=== PATIENT | male | born 1980 | race Caucasian/White ===

== ENCOUNTER 2016-08-16 17:49 | Emergency (ER) | payer SELFPAY ==
[2016-08-16 17:59] VITALS: BP 142/86; PULSE 95; TEMP 98.5; BMI 30.4
[2016-08-16] MEDS ORDERED: ALPRAZolam 0.25 MG TABLET PO ONE (19:07)
--- NOTE | 2016-08-16 19:07 | PDOC ---
History of Present Illness - General Chief Complaint: Psychiatric Stated Complaint: CHEST PAIN Time Seen by Provider: 08/16/16 18:57 History Source: Patient Exam Limitations: No Limitations - History of Present Illness Initial Comments: 08/16/16 19:07 CHIEF COMPLAINT: Chest pain HISTORY OF PRESENT ILLNESS: This is an otherwise healthy 35-year-old male presents for evaluation of chest pain. He reports that he began feeling anxious this afternoon and developed chest pain/pressure and palpitations. He was seen in this ED on 08/05 for similar symptoms and discharged after normal cardiac labs. He does attribute his symptoms to anxiety, but reports that he has never had issues of anxiety prior to these past 2 weeks. Patient is a current smoker (7 cigarettes daily). He denies drug use. He reports occasional alcohol use. He denies family history of CAD/early . Vital signs on arrival are notable for pulse of 95. REVIEW OF SYSTEMS: GENERAL/CONSTITUTIONAL: No fever or chills. No weakness. No weight change. HEAD, EYES, EARS, NOSE AND THROAT: No change in vision. No ear pain or discharge. No sore throat. CARDIOVASCULAR: See HPI. RESPIRATORY: No cough, wheezing, or shortness of breath. GASTROINTESTINAL: No nausea, vomiting, diarrhea or constipation. GENITOURINARY: No dysuria, frequency, or change in urination. MUSCULOSKELETAL: No joint or muscle swelling or pain. No neck or back pain. SKIN: No rash or easy bruising. NEUROLOGIC: No headache, vertigo, loss of consciousness, or loss of sensation. PSYCHIATRIC: No depression or anxiety. ENDOCRINE: No increased thirst. No abnormal weight change. HEMATOLOGIC/LYMPHATIC: No anemia, easy bleeding, or history of blood clots. ALLERGIC/IMMUNOLOGIC: No hives or skin allergy. No latex allergy. PHYSICAL EXAM: GENERAL: The patient is awake, alert, and fully oriented, in no acute distress. HEAD: Normal with no signs of trauma. ENT: Pupils equal, round and reactive to light, extraocular movements intact, sclera anicteric, conjunctiva clear. Neck supple. LUNGS: Clear to auscultation bilaterally. Normal excursion. No respiratory distress or use of accessory muscles. CV: RRR, S1/S2, no MRG. Cap refill < 2 sec. ABDOMEN: Soft, non-distended, non-tender. EXTREMITIES: Normal range of motion, no edema. NEUROLOGICAL: Normal speech, normal gait. CN II-XII grossly intact. PSYCH: Normal mood, normal affect. SKIN: Warm, dry, normal turgor, no rashes or lesions noted. Past History - Past Medical History Allergies/Adverse Reactions: Allergies Allergy/AdvReac Type Severity Reaction Status Date / Time No Known Allergies Allergy Verified 08/16/16 17:56 Home Medications: Ambulatory Orders NK [No Known Home Medication] 08/05/16 Other medical history: anxeity - Psycho/Social/Smoking Cessation Hx Anxiety: No Suicidal Ideation: No Smoking History: Never smoked Have you smoked in the past 12 months: Yes Number of Cigarettes Smoked Daily: 6 Information on smoking cessation initiated: Yes Hx Alcohol Use: No Drug/Substance Use Hx: Yes (randa) Substance Use Type: None *Physical Exam - Vital Signs Last Vital Signs Temp Pulse Resp BP Pulse Ox 98.5 F 95 H 18 142/86 100 08/16/16 17:56 08/16/16 17:56 08/16/16 17:56 08/16/16 17:56 08/16/16 17:56 Heart Score/ECG Review - History History: Slightly suspicious - Electrocardiogram EKG: Normal - Age Age: </= 45 - Risk Factors Risk Factors Heart Score: Yes Smoking History Based on the list above the patient has:: 1-2 risk factors - Troponin Troponin: </= normal limit - Score Heart Score - Total: 1 - ECG Intrepretation Comment:: 08/16/16 20:48 NSR at 100bpm. S1 QIII TIII pattern. ED Treatment Course - LABORATORY CBC & Chemistry Diagram: 08/16/16 19:10 08/16/16 19:10 - RADIOLOGY Radiology Studies Ordered: Category Date Time Status CHEST PA & LAT [RAD] Stat Radiology 08/16/16 19:07 Ordered Medical Decision Making - Medical Decision Making 08/16/16 19:14 A/P: 35 year old male with chest pain/pressure and anxiety; recent visit for similar symptoms. 1. EKG 2. CXR 3. Cardiac labs 4. Xanax 0.25mg po 5. Re-assess 08/16/16 19:39 WBC mildly elevated at 12.3 (11.3 on prior visit). 08/16/16 20:47 CK is mildly elevated at 847. Troponin <0.02. 08/16/16 20:54 D-dimer <200 08/16/16 22:40 Trop neg x 2. CPK trending down. Will dc with PCP followup. Return precautions reviewed. *DC/Admit/Observation/Transfer Diagnosis at time of Disposition: Anxiety Chest pain Qualifiers: Chest pain type: other chest pain Qualified Code(s): R07.89 - Other chest pain ; R07.8 - Other chest pain - Discharge Dispostion Disposition: HOME Condition at time of disposition: Improved Admit: No - Referrals Referrals: Sallie Pineda MD [Staff Physician] - Call tomorrow (primary care) - Patient Instructions Printed Discharge Instructions: DI for Atypical Chest Pain Additional Instructions: -Follow up with primary care (referral enclosed) -Return here for difficulty breathing, worsening chest pain, or any other concerning symptoms
[2016-08-16 19:23] LABS: BASOPHIL 0.4 % (0-2.0); EOSINOPHIL 0.3 % (0-4.5); MCH 28.2 pg (25.7-33.7); MCHC 33.3 g/dl (32.0-35.9); MEAN CELL VOLUME 84.8 fl (80-96); MEAN PLT VOLUME 9.4 fl (7.5-11.1); PLATELET COUNT 205 K/MM3 (134-434); WHITE BLOOD COUNT 12.3 K/mm3 (4.0-10.0)
[2016-08-16] MEDS ORDERED: ALPRAZolam 0.25 MG TABLET ONE (19:41)
[2016-08-16 19:55] LABS: INR 1.11 (0.82-1.09); PROTHROMBIN TIME (PATIENT) 12.2 SEC (9.98-11.88)
[2016-08-16 19:56] LABS: ALBUMIN 4.3 g/dl (3.4-5.0); ANION GAP 9 (8-16); CO2 25 mmol/L (21-32); CREATININE 0.8 mg/dL (0.7-1.3); GLUCOSE,RANDOM 95 mg/dL (74-106); SGOT/AST 27 U/L (15-37); SGPT/ALT 47 U/L (12-78)
[2016-08-16 19:59] LABS: ALK PHOS 107 U/L (45-117); BILIRUBIN,TOTAL 0.4 mg/dL (0.2-1.0); TOT PROT 7.9 g/dl (6.4-8.2); TROPONIN I < 0.02 ng/ml (0.00-0.05)
[2016-08-16 22:31] LABS: TROPONIN I < 0.02 ng/ml (0.00-0.05)
--- NOTE | 2016-08-18 11:57 | EKG ---
Test Reason : Blood Pressure : / mmHG Vent. Rate : 100 BPM Atrial Rate : 100 BPM P-R Int : 170 ms QRS Dur : 092 ms QT Int : 356 ms P-R-T Axes : 052 064 042 degrees QTc Int : 459 ms NORMAL SINUS RHYTHM POSSIBLE LEFT ATRIAL ENLARGEMENT BORDERLINE ECG NO PREVIOUS ECGS AVAILABLE Confirmed by KIT PAYNE, KODY ([id number]) on 08/18/2016 11:57:21 AM Referred By: Confirmed By:KODY PANTOJA MD
== END 2016-08-16 22:42 | disposition home or self-care (01) ==
LOC: JERFT 17:49
DX: F41.9 Anxiety disorder, unspecified (principal); R07.89 Other chest pain
CPT/HCPCS: 36415; 71020-TC; 80053; 82550; 82553; 84484; 85025; 85379; 85610; 93005; 93010; 99281-25

== ENCOUNTER 2017-10-01 13:15 | Emergency (ER) | payer OTHER ==
[2017-10-01 13:34] VITALS: BP 134/75; PULSE 91; TEMP 98.2; BMI 32.2
[2017-10-01] MEDS ORDERED: DIPHTH,PERTUSS(ACELL),TET 0.5 ML DISP.SYRIN IM ONE (13:58)
--- NOTE | 2017-10-01 14:21 | PDOC ---
History of Present Illness - General Chief Complaint: Laceration Stated Complaint: LACERATION - History of Present Illness Initial Comments: 36-year-old male without comorbidities and unsure of his current tetanus status presents for evaluation of a laceration on his right third and fourth fingers. 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 10/01/17 14:17 Past History - Past Medical History Allergies/Adverse Reactions: Allergies Allergy/AdvReac Type Severity Reaction Status Date / Time No Known Allergies Allergy Verified 10/01/17 13:29 Home Medications: Ambulatory Orders NK [No Known Home Medication] 08/05/16 - Suicide/Smoking/Psychosocial Hx Smoking History: Never smoked Have you smoked in the past 12 months: Yes Number of Cigarettes Smoked Daily: 6 Hx Alcohol Use: No Drug/Substance Use Hx: Yes (randa) Substance Use Type: None Review of Systems - Review of Systems Musculoskeletal: Yes: See HPI All Other Systems: Reviewed and Negative *Physical Exam - Vital Signs Last Vital Signs Temp Pulse Resp BP Pulse Ox 98.2 F 91 H 16 134/75 97 10/01/17 13:31 10/01/17 13:31 10/01/17 13:31 10/01/17 13:31 10/01/17 13:31 - Physical Exam Comments: The third finger is normal skin color and temperature there is an irregularly shaped laceration just distal to the MCP J on the volar aspect of the finger. Subcutaneous fat is exposed. FDS and FDP function work independently he is able to make a full fist. The laceration is about 1 cm in length. There is an irregular shaped laceration on the fourth finger just distal to the MCP J on the volar aspect of the finger. The laceration is subcentimeter in length. FDS and FDP work independently 10/01/17 14:17 Medical Decision Making - Medical Decision Making The hand was sterilely prepped aseptically 6 mL of 1% lidocaine for digital block was introduced in the area of the A1 sravan of the right third and fourth finger. After appropriate anesthesia the wounds were explored to their base in a bloodless field without any identification of a foreign body. Using 4-0 nylon sutures in interrupted fashion the wounds were closed. This was tolerated well a dry sterile dressing was placed. Prior to closure the wounds were copiously irrigated. 08/25/18 14:18 *DC/Admit/Observation/Transfer Diagnosis at time of Disposition: Laceration of hand - Discharge Dispostion Disposition: HOME Condition at time of disposition: Stable Decision to Admit order: No - Referrals Referrals: Archie Barrios MD [Staff Physician] - - Patient Instructions Printed Discharge Instructions: DI for Laceration Repair Additional Instructions: Return to the emergency room she develop any redness swelling or tenderness around the area or if the wound begins to drain. Otherwise follow-up with hand surgery in 2-3 days for further evaluation and treatment options. He also have the option of returning to the emergency room in about 10 days for suture removal. Suture removal 10 days. Remove the dressing that was placed on today in 48 hours and wash her hair with soap and water and leave the area open to air. If he need to work he must wear a dressing over the areas of the wound and a glove. - Post Discharge Activity
== END 2017-10-01 14:26 | disposition home or self-care (01) ==
LOC: JERFT 13:15
PROC: 3E0234Z Introduction of Serum, Toxoid and Vaccine into Muscle, Percutaneous Approach (ICD-10-PCS; principal; 2017-10-01)
PROC: 0JQJ0ZZ Repair Right Hand Subcutaneous Tissue and Fascia, Open Approach (ICD-10-PCS; 2017-10-01)
DX: S61.212A Laceration without foreign body of right middle finger without damage to nail, initial encounter (principal); S61.214A Laceration without foreign body of right ring finger without damage to nail, initial encounter; W29.3XXA Contact with powered garden and outdoor hand tools and machinery, initial encounter; Y93.H2 Activity, gardening and landscaping; Y92.89 Other specified places as the place of occurrence of the external cause; Y99.8 Other external cause status
CPT/HCPCS: 12001; 90471; 90715; 99282-25

== ENCOUNTER 2017-11-18 22:05 | Emergency (ER) | payer OTHER ==
[2017-11-18 22:19] VITALS: BMI 31.8
--- NOTE | 2017-11-18 22:36 | PDOC ---
History of Present Illness - General Chief Complaint: Chest Pain Stated Complaint: CHEST PAIN, LT ARM PAIN Time Seen by Provider: 11/18/17 22:30 History Source: Patient Exam Limitations: No Limitations - History of Present Illness Initial Comments: 11/18/17 22:59 37y M no known pmhx presents with chest pain. pt states he has been having intermittent cp for >1 year, the pts pain is typically sharp in the left chest, lasts for a few minutes and the pain takes his breath away. denies any to, worsening of cp on exertion, n/v, diapohresis. not worse with food intake. pt notes he works in [employer] and usually is pain free. pt states he has seen his doctor and been to [facility] several times for this and has been told everything is ok. pt denies any leg edema., calf pain, hemoptysis, fever/chills, cough, back pain , numbness/tingling/.weakness. pt has not tried any tylenol or motrin for his pain. +smoking denies family or personal hx of CAD Past History - Past Medical History Allergies/Adverse Reactions: Allergies Allergy/AdvReac Type Severity Reaction Status Date / Time No Known Allergies Allergy Verified 10/01/17 13:29 Home Medications: Ambulatory Orders NK [No Known Home Medication] 08/05/16 COPD: No - Suicide/Smoking/Psychosocial Hx Smoking History: Never smoked Have you smoked in the past 12 months: Yes Number of Cigarettes Smoked Daily: 6 Hx Alcohol Use: No Drug/Substance Use Hx: Yes (randa) Substance Use Type: None Review of Systems - Review of Systems Able to Perform ROS?: Yes Comments:: 11/18/17 23:01 Constitutional - no reported Fever, Chills, HEENT: no reported vision changes, sore throat Respiratory: no reported cough, sob, hemoptysis Cardiac: +chest pain no reported , palpitations, light headedness, leg swelling Abd/GI: no reported abd pain, nausea, vomiting, blood per rectum, melena, diarrhea : no reported dysuria, frequency, discharge Musculskelatal - no reported back pain, joint swelling skin - no reported bruising, erythema, rash neurological: no reported headache, numbness, focal weakness, tingling, ataxia, hematologic: no reported easy bruising, easy bleeding *Physical Exam - Vital Signs Last Vital Signs Temp Pulse Resp BP Pulse Ox 98.7 F 54 L 18 138/76 99 11/18/17 22:18 11/18/17 22:18 11/18/17 22:18 11/18/17 22:18 11/18/17 22:18 - Physical Exam Comments: 11/18/17 23:01 GENERAL: The patient is awake, alert, and fully oriented, Nontoxic - in no acute distress. HEAD: Normocephalic, atraumatic. EYES: extraocular movements intact, sclera anicteric, conjunctiva clear. ENT: Normal voice, Moist mucous membranes. NECK: Normal range of motion, supple LUNGS: Breath sounds equal, clear to auscultation bilaterally. No wheezes, no rhonchi, no rales. HEART: Regular rate and rhythm, normal S1 and S2 without murmur, rub or gallop. CHEST: no rash, +ttp on L pec major, pain reproducible with certain motions of L arm ABDOMEN: Soft, nontender, normoactive bowel sounds. No guarding, no rebound. . No CVA tenderness EXTREMITIES: Normal range of motion, no edema. No clubbing or cyanosis. No cords, erythema, or tenderness. NEUROLOGICAL: No facial assymetry, Normal speech, movin gall 4 extremities sptonenously and symmetrically PSYCH: Normal mood, normal affect. SKIN: Warm, Dry, normal turgor, Heart Score/ECG Review - ECG Impressions Comment:: 11/18/17 23:02 Twelve-lead EKG was performed and reviewed by me. There is normal sinus rhythm with a Rate of 56 The axis is normal. The intervals are normal. There is normal R wave progression There are no ST or T wave abnormalities. Impression: sinus bradycardia ED Treatment Course - LABORATORY CBC & Chemistry Diagram: 11/18/17 23:12 11/18/17 23:12 - ADDITIONAL ORDERS Additional order review: Laboratory Results 11/18/17 11/18/17 23:12 23:12 Sodium 139 Potassium 3.7 Chloride 105 Carbon Dioxide 26 Anion Gap 8 BUN 20 H Creatinine 0.7 Creat Clearance w eGFR > 60 Random Glucose 106 Calcium 8.6 Total Bilirubin 0.2 AST 23 ALT 61 Alkaline Phosphatase 100 Creatine Kinase 269 Creatine Kinase Index 0.7 CK-MB (CK-2) 2.0 Troponin I < 0.02 Total Protein 7.7 Albumin 4.0 Lipase 92 11/18/17 23:12 RBC 4.64 MCV 85.8 MCHC 34.0 RDW 13.0 MPV 9.0 Neutrophils % 63.2 D Lymphocytes % 27.9 D Monocytes % 6.4 Eosinophils % 1.8 D Basophils % 0.7 - RADIOLOGY Radiology Studies Ordered: Category Date Time Status CHEST PA & LAT [RAD] Stat Radiology 11/18/17 22:59 Ordered - Medications Given in the ED: ED Medications Discontinued Medications Generic Name Dose Route Start Last Admin Trade Name Freq PRN Reason Stop Dose Admin Acetaminophen 650 mg 11/18/17 22:57 11/18/17 23:21 Tylenol - PO 11/18/17 22:58 650 mg ONCE ONE Administration Medical Decision Making - Medical Decision Making 11/18/17 23:03 Suspect muscular chest pain Will give the patient some Tylenol will check chest x-ray to rule out acute pulmonary disease such as pneumothorax EKG reveals no signs of ischemia 11/19/17 00:11 ;labs unremarkble trop neg pt jaquan fuentesroved after tylenol will dc with pmd fu and cardiology follow-up I discussed the physical exam findings, ancillary test results and final diagnoses with the patient. I answered all of the patient's questions. The patient was satisfied with the care received and felt comfortable with the discharge plan and treatment plan. The patient will call their primary care physician within 24 hours to arrange follow-up and will return to the Emergency Department with any new, persistent or worsening symptoms. 11/19/17 00:59 pt declines cxr. will hav ept fu with pmd as outpatient return prcautions were discussed *DC/Admit/Observation/Transfer Diagnosis at time of Disposition: Atypical chest pain - Discharge Dispostion Disposition: HOME Condition at time of disposition: Improved Decision to Admit order: No - Referrals Referrals: Ignacio Canales MD [Staff Physician] - - Patient Instructions Printed Discharge Instructions: DI for Atypical Chest Pain Additional Instructions: Regrese al departamento de emergencias inmediatamente con CUALQUIER sntoma nuevo, persistente o que empeore. Sospecho que el dolor en el pecho es de naturaleza muscular, sin embargo, ya que he estado teniendo un dolor similar lisa el ltimo ao, por favor yelena un seguimiento con cardiologa para talib evaluacin adicional. DEBE llamar y hacer un seguimiento con patten mdico en 3 a 4 parisi para talib evaluacin adicional de fish sntomas. Los resultados fueron discutidos con usted. Asegrese de que patten mdico revise los resultados de patten evaluacin de emergencia. Si tuvo radiografas lisa patten visita, la le de manera preliminar, un radilogo la revisar y, si hay algn hallazgo adicional, lo llamaremos. Return to the emergency department immediately with ANY new, persistent or worsening symptoms. I suspect that you're chest pain is muscular in nature however since been having this similar pain for the past year please follow-up with cardiology for further evaluation. You MUST call and follow up with your doctor in 3-4 days for further evaluation of your symptoms. Results were discussed with you. Please make sure your doctor reviews the results of your emergency evaluation. If you had any xrays during your visit, it was read preliminarily by myself, a Radiologist will review it and if there are any additional findings we will call you. Print Language: TUNISIAN - Post Discharge Activity
[2017-11-18] MEDS ORDERED: ACETAMINOPHEN 325 MG TABLET (FP) PO ONE (22:57)
[2017-11-18] MEDS ORDERED: ACETAMINOPHEN 325 MG TABLET (FP) ONE (23:07)
[2017-11-18 23:26] LABS: BASO % 0.7 % (0-2.0); EOS % 1.8 % (0-4.5); HEMATOCRIT 39.8 % (35.4-49); HEMOGLOBIN 13.5 GM/dL (11.7-16.9); LYMPH % 27.9 % (8-40); MCH 29.2 pg (25.7-33.7); MEAN CELL VOLUME 85.8 fl (80-96); MONO % 6.4 % (3.8-10.2); NEUT % 63.2 % (42.8-82.8); PLATELET COUNT 202 K/MM3 (134-434); RBC 4.64 M/mm3 (4.00-5.60)
[2017-11-19] LABS: ANION GAP 8 MMOL/L (8-16); BILIRUBIN,TOTAL 0.2 mg/dL (0.2-1); BLOOD UREA NITROGEN 20 mg/dL (7-18); CALCIUM 8.6 mg/dL (8.5-10.1); CHLORIDE 105 mmol/L (98-107); CO2 26 mmol/L (21-32); CREATININE 0.7 mg/dL (0.55-1.3); GLUCOSE,RANDOM 106 mg/dL (74-106); POTASSIUM 3.7 mmol/L (3.5-5.1); SGOT/AST 23 U/L (15-37); SODIUM 139 mmol/L (136-145); TOT PROT 7.7 g/dl (6.4-8.2)
[2017-11-19 00:01] LABS: ALK PHOS 100 U/L (45-117); SGPT/ALT 61 U/L (13-61)
[2017-11-19 01:05] VITALS: BP 126/78; PULSE 88; TEMP 98.5
--- NOTE | 2017-11-19 10:24 | EKG ---
Test Reason : Blood Pressure : / mmHG Vent. Rate : 056 BPM Atrial Rate : 056 BPM P-R Int : 182 ms QRS Dur : 104 ms QT Int : 418 ms P-R-T Axes : 042 044 030 degrees QTc Int : 403 ms SINUS BRADYCARDIA NON-SPECIFIC INTRA-VENTRICULAR CONDUCTION DELAY WHEN COMPARED WITH ECG OF 16-AUG-2016 17:59, VENT. RATE HAS DECREASED BY 44 BPM QT HAS SHORTENED Confirmed by MARCOS MCARTHUR MD ([id number]) on 11/19/2017 10:24:05 AM Referred By: Confirmed By:MARCOS MCARTHUR MD
== END 2017-11-19 01:05 | disposition home or self-care (01) ==
LOC: JER 22:05
DX: R07.89 Other chest pain (principal); F17.210 Nicotine dependence, cigarettes, uncomplicated
CPT/HCPCS: 36415; 80053; 82550; 82553; 83690; 84484; 85025; 93005; 93010; 99283-25